=== PATIENT | male | born 1985 | race American Indian/Alaskan Native ===

== ENCOUNTER 2016-06-21 10:13 | Emergency (ER) | payer OTHER ==
[2016-06-21 11:11] LABS: Bacteria,Urine 1+ /HPF (Negative); Bilirubin,Urine NEG (Negative); Blood,Urine NEG (Negative); Ketones,Urine NEG (Negative); Leukocyte Esterase,Urine TR (Negative); Mucus,Urine FEW /HPF; Nitrite,Urine NEG (Negative); Protein,Urine <15 mg/dL mg/dL (Negative)
[2016-06-21] MEDS ORDERED: ROCEPHIN IM ONE (15:09)
[2016-06-21] MEDS ORDERED: XYLOCAINE 1% MPF 5 mL INFILTRATI ONE (15:09)
[2016-06-21 16:00] VITALS: BP 121/78
--- NOTE | 2016-06-21 22:09 | Emergency Department Report ---
Entered by ADE PAUL, acting as scribe for ELENITA MIN NP. ED Male HPI - General Chief complaint: Urogenital-Male Stated complaint: BURNING WHILE URINATION Time Seen by Provider: 06/21/16 14:45 Source: patient Mode of arrival: Ambulatory Limitations: No Limitations - History of Present Illness Initial comments: 30 year old male with no significant PMHx presents to the ED c/o dysuria that began 2 days ago. Patient states that his symptoms began 1 day after having sexual intercourse with a new partner experiencing the same symptoms. The partner is currently being treated for their symptoms and suggested he get treated as well. Associated symptoms include cream/yellow discharge, urgency/ frequency with urination, polyuria, but he denies scrotum swelling and erythema , fever, chill, nausea, vomiting, and shortness of breath. MD Complaint: other (dysuria) Onset/Timin -: days(s) Location: penis Radiation: none Severity: mild Quality: burning (during urination) Improves with: none Worsens with: urination discharge, dysuria, other (polyuria, but denies chest pain, abdominal pain, shorteness of breath, scrotum pain and edema). denies: swelling, rash, urinary retention, fever, nausea/vomiting - Related Data Sexually active: Yes Previous Rx's Medication Instructions Recorded Last Taken Type Azithromycin [Zithromax TAB] 1 g PO QDAY #1 tablet 06/21/16 Unknown Rx Sulfamethoxazole/Trimethoprim 1 each PO BID #6 tablet 06/21/16 Unknown Rx [Bactrim DS TAB] Allergies Allergy/AdvReac Type Severity Reaction Status Date / Time No Known Allergies Allergy Unverified 06/21/16 10:25 ED Review of Systems Comment: All other systems reviewed and negative Constitutional: denies: chills, fever Respiratory: denies: orthopnea, shortness of breath, SOB with exertion, SOB at rest Cardiovascular: denies: chest pain Gastrointestinal: denies: abdominal pain, nausea, vomiting Genitourinary: urgency, dysuria, frequency, discharge (cream-yellow), other ( polyuria, but denies scrotum edema and pain). denies: testicular pain Skin: denies: rash, lesions Neurological: denies: headache, weakness, paresthesias Psychiatric: denies: anxiety, depression ED Past Medical Hx - Medications Home Medications: Home Medications Medication Instructions Recorded Confirmed Last Taken Type Azithromycin [Zithromax TAB] 1 g PO QDAY #1 tablet 06/21/16 Unknown Rx Sulfamethoxazole/Trimethoprim 1 each PO BID #6 tablet 06/21/16 Unknown Rx [Bactrim DS TAB] ED Physical Exam - General Limitations: No Limitations General appearance: alert, in no apparent distress - Head Head exam: Present: atraumatic, normocephalic - Eye Eye exam: Present: normal appearance, EOMI Pupils: Present: normal accommodation - ENT ENT exam: Present: normal exam, mucous membranes moist - Neck Neck exam: Present: normal inspection, full ROM. Absent: lymphadenopathy - Respiratory Respiratory exam: Present: normal lung sounds bilaterally. Absent: respiratory distress - Cardiovascular Cardiovascular Exam: Present: regular rate, normal rhythm - GI/Abdominal GI/Abdominal exam: Present: soft, normal bowel sounds. Absent: distended, tenderness, guarding, rebound, rigid - exam: Present: normal inspection, urethral discharge (yellow ). Absent: testicular tenderness, scrotal swelling, circumcision, other (edema) External exam: Absent: erythema (scrotum), swelling (scrotum), lesions, lacerations, ecchymosis, bleeding - Extremities Exam Extremities exam: Present: normal inspection, full ROM - Back Exam Back exam: Present: normal inspection, full ROM - Neurological Exam Neurological exam: Present: alert, oriented X3 - Psychiatric Psychiatric exam: Present: normal affect, normal mood - Skin Skin exam: Present: warm, dry, intact. Absent: rash, erythema, pallor, abrasion , ecchymosis ED Course Vital Signs 06/21/16 06/21/16 10:25 15:59 Temperature 98.1 F Pulse Rate 63 59 L Respiratory 16 16 Rate Blood Pressure 127/81 Blood Pressure 121/78 [Left] O2 Sat by Pulse 100 100 Oximetry - Reevaluation(s) Reevaluation #1: 06/21/16 15:37 Gonorrhea Chlamydia sent to lab. Patient tolerated well. No signs of any complications ED Medical Decision Making - Medical Decision Making Ed course: This a 30-year-old male that presents with dysuria. 1- I obtained a culture for gonorrhea Chlamydia. Patient tolerated well. No signs of distress or toxic appearance. 2- patient does not seem toxic or ill appearance. 3- instruct the patient to follow-up in 5-7 days for results of gonorrhea chlamydia. 4- patient aware of discharge plan and treatment plan. No questions are noted by the patient. 5- Dr. Lowry is aware of the case. Patient received Rocephin injection for symptoms of gonorrhea/chlamydia. No signs of any distress. Patient tolerated well. - Differential Diagnosis UTI versus gonorrhea/chlamydia ED Disposition Clinical Impression: Urinary tract infection Disposition: DISCHARGED TO HOME OR SELFCARE Is pt being admited?: No Does the pt Need Aspirin: No Condition: Stable Instructions: Urinary Tract Infection in Men (ED) Additional Instructions: Please follow up with her primary care doctor in 3-5 days. Please report back to send the [facility] for a follow-up result for her gonorrhea chlamydia exam in 5-7 days. Please have your partner follow-up with a primary care doctor for possible treatment as well. Prescriptions: Azithromycin [Zithromax TAB] 1 g PO QDAY #1 tablet Sulfamethoxazole/Trimethoprim [Bactrim DS TAB] 1 each PO BID #6 tablet Referrals: PRIMARY CARE, [Primary Care Provider] - 3-5 Days Forms: Work/School Release Form(ED) This documentation as recorded by the HUMBERTO beverly JASMINE,accurately reflects the service I personally performed and the decisions made by ,ELENITA MIN, GISELLE.
== END 2016-06-21 15:59 | disposition home or self-care (01) ==
LOC: ED 10:13
DX: N39.0 Urinary tract infection, site not specified (principal)
CPT/HCPCS: 81001; 87591; 96372; 99282; J0696